=== PATIENT | male | born 1975 | race African-American/Black ===

== ENCOUNTER 2016-10-18 10:16 | Emergency (ER) | payer SELFPAY ==
[~2016-10-18 10:16] MED LIST: BACT800T5 PO; CEPH500T PO; METF500 PO
[2016-10-18 10:29] VITALS: BP 128/79; PULSE 75; RESP 18; TEMP 98; O2SAT 98
[2016-10-18] MEDS ORDERED: METF500T PO ×2 (10:33→12:47)
[2016-10-18] MEDS ORDERED: SODIUM CHLOR 0.9% 1000 ML INJ 1,000 ML IV ONE ×2 (10:36→11:06)
[2016-10-18] MEDS ORDERED: SODIUM CHLORIDE 0.9% FLUSH 10 ML FLUSH IVF PRN (10:45)
[2016-10-18] MEDS ORDERED: ACETAMINOPHEN 325 MG TAB PO ONE (10:45)
[2016-10-18 10:46] VITALS: O2SAT 97
[2016-10-18 11:03] VITALS: BP 123/71; PULSE 74; RESP 20; O2SAT 100
[2016-10-18 11:09] LABS: POTASSIUM 4.4 MEQ/L (3.5-5.1)
[2016-10-18 11:12] LABS: BICARBONATE 28.8 MEQ/L (21.0-32.0)
[2016-10-18] MEDS ORDERED: INSULIN HUMAN REGULAR 1,000 UNITS/10 ML VIAL IV PUSH ONE ×2 (11:30)
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
[2016-10-18 12:09] VITALS: BP 109/67; PULSE 70; O2SAT 99
== END 2016-10-18 12:58 | disposition home or self-care (01) ==
LOC: PHED 10:16
DX: E11.65 Type 2 diabetes mellitus with hyperglycemia (principal); R51 Headache; Z72.0 Tobacco use; Z79.84 Long term (current) use of oral hypoglycemic drugs
CPT/HCPCS: 80048; 96361; 96374; 99284; J1815; J7030